=== PATIENT | male | born 1970 | race Caucasian/White ===

== ENCOUNTER 2023-04-19 09:51 | Outpatient (RCR) | payer OTHER, SELFPAY | END 2023-06-02 09:30 | disposition home or self-care (01) | LOC: PT 09:51 | PROVIDERS: Visit Provider Orthopaedic Surgery Adult Reconstructive Orthopaedic Surgery | DX: M25.561 Pain in right knee (principal); S83.241A Other tear of medial meniscus, current injury, right knee, initial encounter | CPT/HCPCS: 97163 ==